=== PATIENT | female | born 1940 | race Caucasian/White ===

== ENCOUNTER → 2019-01-07 | Outpatient (CLI) | payer MEDICARE, BC ==
[~2019-01-07] MED LIST: ADVAIR 250-501 EACH IH; ASPIRIN81 MG PO; B-121000 MCG PO; BIOTIN2500 MCG PO; CALCIUM + VITA1 EACH PO; CRANBERRY200 MG PO; EVISTA60 MG PO; GLUCOSAMINE-CH1 EA27 PO; IPRAT-ALBUT 0.5-3 ML INH; KRILL OIL500 MG PO; LEVOTHYROXINE75 MCG PO; METOPROLOL TART25 GM; METOPROLOL TART25 MG PO; MONTELUKAST SOD10 MG PO; MULTI-VITAMIN1 EACH PO; PREMARIN42.5 GM VG; PROAIR HFA INH8.5 GM; VIT D3 PO; XYZAL5 MG PO; ZYRTEC10 M3 PO
--- NOTE | 2019-01-07 11:05 | Diagnostic Imaging Report ---
Exam: Bone mineral density study. Indication: Age-related osteoporosis. The patient history questionnaire was completed and is available on PACS. Comparison: Previous DEXA 11/21/2015. Baseline DEXA 11/21/2015 Findings: Evaluation of the left hip and lumbar spine was performed. The study is technically adequate. The patient's fracture risk is compared to an age-matched control. The patient denies prior surgery/fracture of the spine, hips or forearm. The left femoral neck total bone mineral density is 0.812 gm/cm2, the T-score is -0.3, and the total Z-score is 1.9. The total left hip bone mineral density is 0.813 gm/cm2, the T-score is -1.1, and the total Z-score is 0.9. The total mean hip BMD change versus baseline is -0.007. The lumbar spine total bone mineral density is 1.074 gm/cm2, the T-score is 0.2, and the Z-score is 2.9. The BMD change versus baseline is +0.014. Least significant change (LSC) for bone mineral density as provided by radial drill operator for plastic is 0.023 g/cm2 for lumbar spine and 0.027 g/cm2 for total hip. Impression: 1. Bone mineralization shows osteopenia. Fracture risk is moderate. 2. With a Z score of 0.9, the bone mineral density is normal for someone of this age. Nevertheless, bone mineral density is considered osteopenic relative to young adult normals. 3. Since previous examination, there is no significant change of bone mineral density at the hips or lumbar spine. Medical evaluation for secondary causes of low bone bone mineral density may be appropriate. Correlate clinically for the necessity and timing of the next bone mineral density study. Staff: Saqib Signed by: Dr. Torrey Cerrato M.D. on 01/07/2019 11:02 AM
== END ==
LOC: DX 09:36
PROVIDERS: ATTEND Family Medicine
DX: M81.0 Age-related osteoporosis without current pathological fracture (principal)
CPT/HCPCS: 77080

== ENCOUNTER → 2019-12-22 | Outpatient (CLI) | payer MEDICARE, BC ==
[~2019-12-22] MED LIST changes: +IOPAMIDOL 370 MG/ML 200 ML INFUS..BTL INJ ONE; +SODIUM CHLORIDE 0.9% 250ML 0 ML ONE; +SODIUM CHLORIDE 0.9% 250ML 250 ML ONE; +SODIUM CHLORIDE 0.9% 500ML 500 ML ONE
[2019-12-22 15:21] LABS: CREATININE, SERUM 0.97 mg/dL (0.57-1.11)
--- NOTE | 2019-12-22 17:09 | Diagnostic Imaging Report ---
EXAM: CT Abdomen and Pelvis WITHOUT and WITH intravenous contrast - Hematuria protocol INDICATION: Hematuria COMPARISON: None. TECHNIQUE: Abdomen and pelvis were scanned utilizing a multidetector helical scanner from the lung base to the pubic symphysis before and after administration of IV contrast. Coronal and sagittal reformations were obtained. Hematuria protocol was used. Scan was performed prior to contrast administration and during portal venous phase. IV CONTRAST: 100 mL of Isovue 370 ORAL CONTRAST: Water COMPLICATIONS: None RADIATION DOSE: Total DLP: 1101 mGy*cm Dose modulation, iterative reconstruction, and/or weight based adjustment of the mA/kV was utilized to reduce the radiation dose to as low as reasonably achievable. FINDINGS: LOWER THORAX: Bibasilar increased peripheral interstitial opacities and traction bronchiectasis with areas of honeycombing, compatible with interstitial lung disease. HEPATOBILIARY: No focal liver lesion. No biliary ductal dilation. Unremarkable gallbladder. SPLEEN: No splenomegaly. PANCREAS: No focal masses or ductal dilatation. ADRENALS: No adrenal nodules. KIDNEYS/URETERS: No hydronephrosis, stones, or solid mass lesions. 12 mm anterior left midpole simple cyst. Delayed excretory phase images demonstrate opacification of the entire course of both ureters. No filling defect to suggest urothelial mass lesion. PELVIC ORGANS/BLADDER: Unremarkable. PERITONEUM / RETROPERITONEUM: No free air or fluid. LYMPH NODES: No lymphadenopathy. VESSELS: Moderate atherosclerotic calcifications of the nonaneurysmal abdominal aorta and major branches. GI TRACT: Diverticulosis without CT evidence of diverticulitis. No abnormal bowel thickening. No bowel obstruction. Normal appendix. BONES AND SOFT TISSUES: No acute osseous injury. No suspicious lytic or blastic lesions. Degenerative changes of the visualized spine, most notably at T11-12 where there is a large Schmorl's node at the superior endplate of T12. IMPRESSION: No hydronephrosis, renal calculi, or solid renal mass lesion. No evidence of urothelial mass lesion. 12 mm left renal cyst. Bibasilar increased peripheral interstitial opacities and traction bronchiectasis with areas of honeycombing, compatible with interstitial lung disease in a UIP distribution. Signed by: Mary Tate MD on 12/22/2019 5:06 PM
== END ==
LOC: CT 14:29
PROVIDERS: ATTEND Family Medicine
DX: R31.9 Hematuria, unspecified (principal)
CPT/HCPCS: 36415; 74178; 82565; 84520; 96360; J7040; J7050; Q9967

== ENCOUNTER → 2020-11-13 | Outpatient (CLI) | payer MEDICARE, BC ==
[~2020-11-13] MED LIST changes: -IOPAMIDOL 370 MG/ML 200 ML INFUS..BTL INJ ONE; -SODIUM CHLORIDE 0.9% 250ML 0 ML ONE; -SODIUM CHLORIDE 0.9% 250ML 250 ML ONE; -SODIUM CHLORIDE 0.9% 500ML 500 ML ONE
== END ==
LOC: US 11:08
PROVIDERS: ATTEND Family Medicine
DX: M25.522 Pain in left elbow (principal); R22.32 Localized swelling, mass and lump, left upper limb
CPT/HCPCS: 76882

== ENCOUNTER → 2020-11-26 | Outpatient (CLI) | payer MEDICARE, BC ==
[~2020-11-26] MED LIST changes: +IOPAMIDOL 370 MG/ML 200 ML INFUS..BTL INJ ONE; +SODIUM CHLORIDE 0.9% 50ML 50 ML ONE
== END ==
LOC: CT 13:29
PROVIDERS: ATTEND Family Medicine
DX: R22.32 Localized swelling, mass and lump, left upper limb (principal)
CPT/HCPCS: 36415; 73201; 82565; 84520; Q9967

== ENCOUNTER → 2023-03-18 | Outpatient (CLI) | payer MEDICARE, BC ==
[~2023-03-18] MED LIST changes: -IOPAMIDOL 370 MG/ML 200 ML INFUS..BTL INJ ONE; -SODIUM CHLORIDE 0.9% 50ML 50 ML ONE
== END ==
LOC: DX 09:55
PROVIDERS: ATTEND Family Medicine
DX: M85.88 Other specified disorders of bone density and structure, other site (principal)
CPT/HCPCS: 77080